=== PATIENT | male | born 1950 | race Caucasian/White ===

== ENCOUNTER 2021-03-29 08:04 | Day surgery (SDC) | payer OTHER ==
[~2021-03-29] VITALS: Ht 167.6 cm; Wt 96.5 kg
[~2021-03-29 08:04] MED LIST: ACTOS15 MG PO; ADVIL200 MG PO; ALOGLIPTIN25 MG PO; ASPIRIN EC81 MG PO; CLINDAMYCIN HC300 MG PO; FISH OIL 1,0001 EAC1 PO; LISINOPRIL10 MG PO; METFORMIN HCL1000 MG PO; NORCO 5-325 TA1 EACH PO; PRAVASTATIN SOD40 MG PO; VOLTAREN100 GM TOP
--- NOTE | 2021-03-29 09:59 | NUR ---
03/29/21 0959 Rhoda Blakely 0952- PT TO PACU IN LL POSITION. EYES CLOSED. PT RESPONDS TO VERBAL AND TACTILE STIMULI. DENIES PAIN AND FALLS QUICKLY BACK TO SLEEP. BREATHING EASY AND UNLABORED. SPO2 >95% ON 3L O2 VIA NC. PT ENCOURAGED TO PASS GAS.
--- NOTE | 2021-03-30 05:03 | OR ---
[facility] [address], [place] [address] Signed DATE OF OPERATION: 03/29/2021 SURGEON: Eliu Pete MD PREOPERATIVE DIAGNOSES: 1. Father with colon cancer in mid 70s. 2. Brother with colon cancer at age 62. 3. Personal history of adenomatous colonic polyps in 2009 and 2014. POSTOPERATIVE DIAGNOSES: 1. 4 mm polyp at 90 cm. 2. 8 mm polyp at 30 cm. 3. Enlarged prostate (left greater than right). PROCEDURE: Colonoscopy with hot biopsy. ESTIMATED BLOOD LOSS: None. INDICATIONS: Amalia is a 70-year-old gentleman who presents for a followup colonoscopy. This will be his 3rd colonoscopy. I performed his initial colonoscopy in 2009 for guaiac-positive stool. At that time, his father had colon cancer in his mid 70s and his brother had colon cancer at age 62. We took out several adenomatous polyps from his colon. Dr. Baker removed colonic polyps in 2014. Unfortunately, we do not have the actual reports. He was asked to stay on the 5-year plan. With COVID pandemic, he did not come last year. He now presents for his followup colonoscopy. He has no lower GI complaints. He has done well with Versed and fentanyl in the past. In the office, I gave Gillian pamphlet on colonoscopy. He understands the nature of the test along with the risks including, but not limited to gas bloating, crampy abdominal pain, bleeding, perforation requiring surgery, and missed diagnosis. He also understands the need for IV conscious sedation. He had expressed understanding and wished to proceed. PROCEDURE NOTE: Amalia was taken into our endoscopy suite and placed in the left lateral decubitus position. He was given IV sedation with 7 mg of Versed and 150 mcg of fentanyl. A digital rectal exam was performed. He has a rather significant enlarged prostate gland. The left is significantly more prominent than the right. It is a little concerning and probably should be followed up with his primary care provider. The adult colonoscope Electronically Signed By: ELIU PETE MD 03/30/21 0503 PATIENT NAME: MAALIA MOSCOSO OPERATIVE REPORT DATE OF : 50 REPORT #: [id number] PHYSICIAN: ELIU PETE MD PCP: YOLANDE WILLETT MD REPORT IS CONFIDENTIAL AND NOT TO BE RELEASED WITHOUT AUTHORIZATION [facility] [address], [place] [address] Signed was introduced and advanced under direct visualization of the camera. It took some extra sedation and abdominal compression in order to get cecum itself. His prep was quite excellent. We could easily see the appendiceal orifice and the ileocecal valve. The scope was then slowly withdrawn. The above-mentioned polyps were easily removed with the help of hot biopsy forceps. We did not see any diverticulosis. The rectum was unremarkable. Upon retroflexion of scope, he has two tiny internal anal skin tags. After this, the gas was suctioned out and colonoscope removed. Amalia tolerated the procedure quite well. RECOMMENDATIONS: I will see Amalia back in my office in 7 to 14 days to review his results. He might review his prostate exam with his primary care provider. Eliu Pete MD ALB/MODL /[id number] cc: [facility] [place] [place] Eliu Pete MD Copies: ELIU PETE MD ~ Electronically Signed By: ELIU PETE MD 03/30/21 0503 PATIENT NAME: AMALIA MOSCOSO OPERATIVE REPORT DATE OF : 50 REPORT #: [id number] PHYSICIAN: ELIU PETE MD PCP: YOLANDE WILLETT MD REPORT IS CONFIDENTIAL AND NOT TO BE RELEASED WITHOUT AUTHORIZATION
--- NOTE | 2021-03-30 18:09 | PATH ---
[facility] [address] [facility] [place], [place] [address] Signed SPECIMEN(S): A COLON POLYP AT 90 CM SPECIMEN(S): B COLON POLYP AT 30 CM SPECIMEN SOURCE: A. COLON POLYP AT 90 CM B. COLON POLYP AT 30 CM CLINICAL HISTORY: History of colon polyps, family history of colon CA. MICROSCOPIC DESCRIPTION: Histologic sections of all submitted blocks are examined by light microscopy. These findings, together with the gross examination, support the pathologic diagnosis. FINAL PATHOLOGIC DIAGNOSIS: A. Colon, polyp at 90 cm, polypectomy: - Tubular adenoma. - Negative for high-grade dysplasia or malignancy. B. Colon, polyp at 30 cm, polypectomy: - Fragments of tubular adenoma. - Negative for high-grade dysplasia or malignancy. NAL:cml:C2NR GROSS DESCRIPTION: Two specimens are received in two containers, labeled "DK." A. The specimen, labeled "DK, colon polyp at 90 cm," is received in formalin and consists of one putnam soft tissue fragment that measures 0.2 cm in greatest dimension. The specimen is entirely submitted in cassette (A1). B. The specimen, labeled "DK, colon polyp at 30 cm," is received in formalin and consists of two putnam soft tissue fragment(s) that measure 0.2 cm in greatest dimension. The specimen is entirely submitted in cassette (B1). JS (under the direct supervision of a pathologist) The Gross Description was prepared using a voice recognition system. The report was reviewed for accuracy; however, sound-alike word errors, addition and/or deletions may occur. If there is any question about this report, please contact Client Services. PERFORMING LABORATORY: The technical component was performed by [facility], Johnathan Tejada, PATIENT NAME: AMALIA MOSCOSO PATHOLOGY DATE OF : 50 REPORT #: [id number] PHYSICIAN: HEATHER PATHOLOGY PCP: YOLANDE WILLETT MD REPORT IS CONFIDENTIAL AND NOT TO BE RELEASED WITHOUT AUTHORIZATION [facility] [address] [place], [place] [address] [place] [address] ([employer] Eng[employer]ver: Padma Pearl MD; CLIA# [id number]). Professional interpretation was performed by [facility], [address] [address] (CLIA# [id number]). Diagnostician: Doreen Brown MD Pathologist Electronically Signed 03/30/2021 Copies: ~ PATIENT NAME: AMALIA MOSCOSO PATHOLOGY DATE OF : 50 REPORT #: [id number] PHYSICIAN: HEATHER PATHOLOGY PCP: YOLANDE WILLETT MD REPORT IS CONFIDENTIAL AND NOT TO BE RELEASED WITHOUT AUTHORIZATION
== END 2021-03-29 10:52 | disposition home or self-care (01) ==
LOC: DS 08:04 → OPS 08:04 → DS 08:15 → OPS 08:15
PROVIDERS: ATTEND Colon & Rectal Surgery
PROC: 0DBE8ZX Excision of Large Intestine, Via Natural or Artificial Opening Endoscopic, Diagnostic (ICD-10-PCS; principal; 2021-03-29 08:15)
DX: Z12.11 Encounter for screening for malignant neoplasm of colon (principal); D12.6 Benign neoplasm of colon, unspecified; N40.0 Benign prostatic hyperplasia without lower urinary tract symptoms; I12.9 Hypertensive chronic kidney disease with stage 1 through stage 4 chronic kidney disease, or unspecified chronic kidney disease; N18.32 Chronic kidney disease, stage 3b; E11.22 Type 2 diabetes mellitus with diabetic chronic kidney disease; E78.5 Hyperlipidemia, unspecified; Z79.82 Long term (current) use of aspirin; Z79.84 Long term (current) use of oral hypoglycemic drugs; Z88.0 Allergy status to penicillin; Z86.010 Personal history of colon polyps; Z80.0 Family history of malignant neoplasm of digestive organs; Z20.822 Contact with and (suspected) exposure to COVID-19
CPT/HCPCS: 88305; 99153; G0500; J2250; J3010; J7121